=== PATIENT | male | born 1990 | race Caucasian/White ===

== ENCOUNTER 2017-10-21 16:22 | Emergency (ER) | payer BC ==
[2017-10-21 17:34] VITALS: TEMP 98.2
--- NOTE | 2017-10-21 18:01 | ED ---
Male Urogenital HPI - General Chief complaint: Urogenital Stated complaint: Urogenital Time Seen by Provider: 10/21/17 17:29 Source: patient, RN notes reviewed, old records reviewed Mode of arrival: ambulatory Limitations: no limitations - History of Present Illness Initial comments: 27-year-old male presents emergency Department chief complaint of left testicular pain. Patient reports this occurred 6 days ago after having intercourse. He reports he was seen at [facility] and treated for sexually transmitted infections, given Rocephin and multiple oral pills to take. Patient states that he has been having occasional pain to the left testicle since that time. He was concerned that there could be more she's going on so he was seen today. Pain seems worse with certain movements. He denies a significant swelling. Denies any painful urination or penile discharge. - Related Data Allergies Allergy/AdvReac Type Severity Reaction Status Date / Time No Known Allergies Allergy Verified 10/21/17 17:34 Review of Systems ROS Statement: Those systems with pertinent positive or pertinent negative responses have been documented in the HPI. ROS Other: All systems not noted in ROS Statement are negative. Past Medical History Past Medical History: No Reported History History of Any Multi-Drug Resistant Organisms: None Reported Past Surgical History: No Surgical Hx Reported Past Psychological History: Anxiety Smoking Status: Never smoker Past Alcohol Use History: Occasional Past Drug Use History: None Reported General Exam - General Exam Comments Initial Comments: This is a 27-year-old male. Alert and oriented. No significant distress. Limitations: no limitations General appearance: alert, in no apparent distress Head exam: Present: atraumatic, normocephalic, normal inspection Eye exam: Present: normal appearance, PERRL, EOMI. Absent: scleral icterus, conjunctival injection, periorbital swelling ENT exam: Present: normal exam, mucous membranes moist Neck exam: Present: normal inspection. Absent: tenderness, meningismus, lymphadenopathy Respiratory exam: Present: normal lung sounds bilaterally. Absent: respiratory distress, wheezes, rales, rhonchi, stridor Cardiovascular Exam: Present: regular rate, normal rhythm, normal heart sounds. Absent: systolic murmur, diastolic murmur, rubs, gallop, clicks GI/Abdominal exam: Present: soft, normal bowel sounds. Absent: distended, tenderness, guarding, rebound, rigid exam: Present: normal inspection. Absent: testicular tenderness, urethral discharge, scrotal swelling, vertical testicular lie, circumcision Extremities exam: Present: normal inspection, full ROM, normal capillary refill. Absent: tenderness, pedal edema, joint swelling, calf tenderness Back exam: Present: normal inspection Neurological exam: Present: alert, oriented X3, CN II-XII intact Psychiatric exam: Present: normal affect, normal mood Course Vital Signs 10/21/17 17:30 Temperature 98.2 F Pulse Rate 76 Respiratory 18 Rate Blood Pressure 132/76 O2 Sat by Pulse 100 Oximetry Medical Decision Making - Medical Decision Making 27-year-old male onset of left-sided testicular pain after intercourse. Was treated for sexually transmitted infections at this time. Patient has had no urinary symptoms including PE doubt discharge or dysuria. She he reports the pain has been occasional. He has no tenderness to palpation over the scrotum. There is no significant swelling noticed. No abnormal lesions. Ultrasound shows evidence of a left-sided varicocele. Discussed following up with urology. Discussed scrotal support and anti-inflammatory medication. Patient agrees treatment plan will comply. Return parameters were discussed. - Lab Data Lab Results 10/21/17 Range/Units 17:54 Urine Color Yellow Urine Appearance Clear (Clear) Urine pH 6.0 (5.0-8.0) Ur Specific [place] 1.008 (1.001-1.035) Urine Protein Negative (Negative) Urine Glucose (UA) Negative (Negative) Urine Ketones Negative (Negative) Urine Blood Negative (Negative) Urine Nitrite Negative (Negative) Urine Bilirubin Negative (Negative) Urine Urobilinogen <2.0 (<2.0) mg/dL Ur Leukocyte Esterase Negative (Negative) - Radiology Data Radiology results: report reviewed Mild left-sided varicocele. No evidence of testicular torsion or mass. Disposition Clinical Impression: Left varicocele Disposition: HOME SELF-CARE Condition: Good Instructions: Varicocele (ED) Additional Instructions: Patient has a follow-up with urology. Patient should return to emergency department if any alarming signs or symptoms occur. Patient can do scrotal support, as well as take Motrin Tylenol for pain. Is patient prescribed a controlled substance at d/c from ED?: No When asked, does pt state using other controlled substances?: No If prescribed controlled substance>3 days was MAPS reviewed?: No If opioid is for acute pain is fill amount 7 days or less?: No If Rx opioid, was Start Talking consent form obtained?: No Referrals: Joycelyn Ross MD [Primary Care Provider] - 1-2 days Scottie Bassett MD [STAFF PHYSICIAN] - 1-2 days Time of Disposition: 19:03
[2017-10-21 18:13] LABS: Appearance,Urine Clear (Clear); Bilirubin,Urine Negative (Negative); Blood,Urine Negative (Negative); Color,Urine Yellow; Glucose,Urine (UA) Negative (Negative); Ketones,Urine Negative (Negative); Leukocyte Esterase,Urine Negative (Negative); Nitrite,Urine Negative (Negative); Protein,Urine Negative (Negative); Specific Gravity,Urine 1.008 (1.001-1.035); Urobilinogen,Urine <2.0 mg/dL (<2.0)
--- NOTE | 2017-10-21 19:00 | US ---
EXAMINATION TYPE: US scrotum with doppler. Grayscale and color Doppler Duplex imaging performed of t selina scrotum. DATE OF EXAM: 10/21/2017 COMPARISON: NONE CLINICAL HISTORY: Pain. EXAM MEASUREMENTS: TESTICLES: Right Testicle: 5.8 x 2.7 x 3.1 cm Left Testicle: 5.7 x 2.3 x 3.2 cm EPIDIDYMIS HEAD: Right Epididymis: 0.9 cm Left Epididymis: 0.7 cm Doppler performed to assess for testicular vascularity; good bilateral color flow and waveforms are s een. There is no evidence of testicular torsion. Presence of hydroceles: no Presence of varicoceles: There does appear to be a left varicocele. IMPRESSION: Mild left-sided varicocele. No evidence of testicular torsion or mass.
[2017-10-21 19:29] VITALS: BP 142/87; PULSE 75; RESP 16
== END 2017-10-21 19:38 | disposition home or self-care (01) ==
LOC: EC 16:22
DX: I86.1 Scrotal varices (principal); N50.812 Left testicular pain
CPT/HCPCS: 76870; 81003; 87086; 93975; 99284

== ENCOUNTER 2022-08-17 10:43 | Observation (INO) | payer BC ==
[2022-08-17] MEDS ORDERED: SODIUM CHLORIDE 0.9% 1,000 ML IV STA (11:08)
[2022-08-17] MEDS ORDERED: METOCLOPRAMIDE 5 MG/ML 2 ML VIAL IVP STA (11:15)
[2022-08-17] MEDS ORDERED: PANTOPRAZOLE 40 MG/10 ML VIAL IVP STA (11:15)
[2022-08-17 11:33] LABS: Basophils % (A) 0 %; Eosinophils # (A) 0.2 k/uL (0-0.7); Eosinophils % (A) 2 %; HCT 43.6 % (39.0-53.0); HGB 15.8 gm/dL (13.0-17.5); Hyperchromasia Moderate; Lymphocytes % (A) 9 %; MCH 30.4 pg (25.0-35.0); MCHC 36.2 g/dL (31.0-37.0); MCV 84.1 fL (80.0-100.0); Monocytes # (A) 0.6 k/uL (0-1.0); Monocytes % (A) 6 %; Neutrophils # (A) 9.5 k/uL (1.3-7.7); Neutrophils % (A) 82 %; Platelet Count 188 k/uL (150-450); RBC 5.19 m/uL (4.30-5.90); RDW 13.2 % (11.5-15.5); WBC 11.6 k/uL (3.8-10.6)
[2022-08-17 11:59] LABS: ALT 68 U/L (4-49); AST 30 U/L (17-59); African American GFR (CKD) >90 (>60 ml/min/1.73 sqM); Albumin 4.5 g/dL (3.5-5.0); Alkaline Phosphatase 62 U/L (38-126); Anion Gap 13 mmol/L; Blood Urea Nitrogen 12 mg/dL (9-20); Calcium 9.1 mg/dL (8.4-10.2); Carbon Dioxide 23 mmol/L (22-30); Chloride 104 mmol/L (98-107); Glucose 103 mg/dL (74-99); Lipase 52 U/L (23-300); Non-African American GFR(CKD) >90 (>60 ml/min/1.73 sqM); Potassium 4.3 mmol/L (3.5-5.1); Sodium 140 mmol/L (137-145); Total Bilirubin 1.4 mg/dL (0.2-1.3); Total Protein 7.5 g/dL (6.3-8.2)
[2022-08-17] MEDS ORDERED: KETOROLAC 15 MG/ML 1 ML VIAL IVP STA (12:14)
[2022-08-17] MEDS ORDERED: ONDANSETRON 4 MG/2 ML VIAL IVP STA ×2 (12:14→13:13)
--- NOTE | 2022-08-17 12:58 | US ---
EXAMINATION TYPE: US abdomen limited DATE OF EXAM: 08/17/2022 COMPARISON: NONE CLINICAL INDICATION: Male, 32 years old with history of pain; Abdominal pain for 2 days, getting wors e, vomiting TECHNIQUE: Multiple sonographic images of the right upper quadrant are obtained. FINDINGS: EXAM MEASUREMENTS: Liver Length: 17.8 cm Gallbladder Wall: 0.3 cm CBD: 0.5 cm Right Kidney: 11.8 x 4.6 x 4.7 cm INDUSTRIAL ROOFER HELPER NOTES:*Limitations due to patient's body habitus and large amount of overlying bowel cont ent Pancreas: Obscured by bowel gas Liver: heterogeneous. At least one mildly hyperechoic area left lobe = 1.9 x 1.8 x 3.1cm Gallbladder: no evidence of stones as visualized Evidence for sonographic Burton's sign: no CBD: limited evaluation, appears wnl Right Kidney: no evidence of hydronephrosis IMPRESSION: 1. Suspected hemangioma within the liver. Follow-up ultrasound in 3-6 months is recommended to confir m stability. 2. No acute ultrasound abnormality of the abdomen.
[2022-08-17] MEDS ORDERED: diphenhydrAMINE 50 MG/ML 1 ML VIAL IVP STA (13:13)
[2022-08-17] MEDS ORDERED: HYDROmorphone 0.5 MG/0.5 ML SYRINGE IVP STA (13:13)
[2022-08-17 13:42] LABS: Appearance,Urine Turbid (Clear); Bacteria,Urine Rare /hpf; Bilirubin,Urine Negative (Negative); Blood,Urine Negative (Negative); Color,Urine Yellow; Glucose,Urine (UA) Negative (Negative); Ketones,Urine 1+ (Negative); Leukocyte Esterase,Urine Negative (Negative); Mucus,Urine Many /hpf; Nitrite,Urine Negative (Negative); Protein,Urine Trace (Negative); Specific Gravity,Urine 1.033 (1.001-1.035); Urobilinogen,Urine <2.0 mg/dL (<2.0); WBC,Urine 1 /hpf (0-5)
--- NOTE | 2022-08-17 14:26 | CT ---
EXAMINATION TYPE: CT abdomen pelvis w con DATE OF EXAM: 08/17/2022 COMPARISON: None INDICATION: Abdominal pain DLP: 2159.8 mGycm, Automated exposure control for dose reduction was used. CONTRAST: 100 ml mL of Isovue 300. Study performed without Oral Contrast TECHNIQUE: Axial images were obtained from above the diaphragm to the pubic rami in the axial plane a t 5 mm thick sections. Reconstructed images are reviewed on the computer in the coronal plane. FINDINGS: Limited CT sections are obtained the lung bases. The lung bases are clear. CT ABDOMEN: Liver: Mild diffuse fatty infiltration is through the liver. There are hypodensities within the liver most likely on the basis of hepatic cyst. However, there is a 1.8 x 3.7 cm hypodensity which is less distinct on the delayed images. Underlying mass at this level is not excluded. This could be a heman gioma identified by ultrasound. Spleen: Normal Pancreas: Normal Adrenal glands: The adrenal glands are normal. Gallbladder: Normal Kidneys: No masses are evident. No hydronephrosis is present. No cysts are present. Delayed images were obtained through the kidneys, which remain unremarkable. Aorta: Normal Inferior vena cava: Normal. CT PELVIS: Loops of bowel within the abdomen and pelvis are normal. There are loops of bowel which are incom pletely distended or lack oral contrast limiting their evaluation. Appendix: The appendix is dilated at 1.6 cm. Multiple periappendiceal inflammatory changes are presen t. Findings could be compatible with acute appendicitis. Urinary bladder: Normal. Genitourinary structures: Prostate is normal Osseous structures: No suspicious lytic or sclerotic lesions. IMPRESSIONS: 1. Acute appendicitis. No abscess formation or free air is evident. Report was called to the emergen cy room PA by Dr. Altamirano by telephone at the time of interpretation. 2. Suspect a hepatic hemangioma, follow-up ultrasound in 6 months recommended
[2022-08-17] MEDS ORDERED: NALOXONE 0.4 MG/ML 1 ML VIAL IV PRN ×2 (14:30→20:28)
[2022-08-17] MEDS ORDERED: HYDROmorphone 0.5 MG/0.5 ML SYRINGE IVP PRN (14:30)
[2022-08-17] MEDS ORDERED: ONDANSETRON 4 MG/2 ML VIAL IVP PRN ×2 (14:30→20:28)
--- NOTE | 2022-08-17 14:31 | ED ---
Abdominal Pain HPI - General Chief Complaint: Abdominal Pain Stated Complaint: Abd Pain Time Seen by Provider: 08/17/22 10:59 Source: patient, RN notes reviewed Mode of arrival: ambulatory Limitations: no limitations - History of Present Illness Initial Comments: 32-year-old male presents emergency Department from urgent care chief complaint abdominal pain. Patient states he was seen at urgent care was given Bentyl, Pepcid for his pain is in the mid upper abdomen. He states that the pain is worse and he started having nausea vomiting at night. Patient states she just does not feel well. He locates the pain in his mid abdomen symptoms in his rig ht upper quadrant. - Related Data Home Medications Medication Instructions Recorded Confirmed Citalopram Hydrobromide 20 mg PO HS 08/17/22 08/17/22 [Citalopram HBr] Dicyclomine [Bentyl] 20 mg PO TID 08/17/22 08/17/22 Famotidine [Pepcid] 40 mg PO DAILY 08/17/22 08/17/22 Allergies Allergy/AdvReac Type Severity Reaction Status Date / Time No Known Allergies Allergy Verified 08/17/22 12:17 Review of Systems ROS Statement: Those systems with pertinent positive or pertinent negative responses have been documented in the HPI. ROS Other: All systems not noted in ROS Statement are negative. Past Medical History Past Medical History: No Reported History History of Any Multi-Drug Resistant Organisms: None Reported Past Surgical History: No Surgical Hx Reported Past Psychological History: Anxiety Smoking Status: Never smoker Past Alcohol Use History: Occasional Past Drug Use History: None Reported General Exam Limitations: no limitations General appearance: alert, in no apparent distress Head exam: Present: atraumatic, normocephalic, normal inspection Neck exam: Present: normal inspection, full ROM. Absent: tenderness, meningismus, lymphadenopathy Respiratory exam: Present: normal lung sounds bilaterally. Absent: respiratory distress, wheezes, rales, rhonchi, stridor Cardiovascular Exam: Present: regular rate, normal rhythm, normal heart sounds. Absent: systolic murmur, diastolic murmur, rubs, gallop, clicks GI/Abdominal exam: Present: soft, tenderness, normal bowel sounds. Absent: distended, guarding, rebound, rigid Neurological exam: Present: alert Skin exam: Present: warm, dry, intact, normal color. Absent: rash Course Vital Signs 08/17/22 10:53 Temperature 98 F Pulse Rate 83 Respiratory 20 Rate Blood Pressure 122/79 O2 Sat by Pulse 99 Oximetry Medical Decision Making - Medical Decision Making Was pt. sent in by a medical professional or institution ([facility], SMALL ENGINE TRAINER, urgent care, hospital, or residential...) When possible be specific @ -Urgent Care Did you speak to anyone other than the patient for history (EMS, parent, family, police, friend...)? What history was obtained from this source @ -No Did you review nursing and triage notes (agree or disagree)? Why? @ -I reviewed and agree with nursing and triage notes Were old charts reviewed (outside hosp., previous admission, EMS record, old EKG, old radiological studies, urgent care reports/EKG's, residential records)? Report findings @ -No old charts were reviewed Differential Diagnosis (chest pain, altered mental status, abdominal pain women, abdominal pain men, vaginal bleeding, weakness, fever, dyspnea, syncope, headache, dizziness, GI bleed, back pain, seizure, CVA, palpatations, mental health, musculoskeletal)? @ -nDifferential Abdominal Pain Men: Appendicitis, cholecystitis, diverticulosis, ischemic bowel, pancreatitis, hepatitis, UTI, gastroenteritis, AAA, incarcerated hernia, bowel obstruction, constipation, inflammatory bowel, hepatitis, peptic ulcer disease, splenic infarction, perforated viscus, testicular torsion, this is not meant to be an all-inclusive listble EKG interpreted by me (3pts min.). @ -none X-rays interpreted by me (1pt min.). @ -None done CT interpreted by me (1pt min.). @ -CT of the abdomen and pelvis shows evidence of acute appendicitis U/S interpreted by me (1pt. min.). @ -Ultrasound shows a meningioma, no evidence of cholecystitis What testing was considered but not performed or refused? (CT, X-rays, U/S, labs)? Why? @ -None What meds were considered but not given or refused? Why? @ -None Did you discuss the management of the patient with other professionals (professionals i.e. [facility], SMALL ENGINE TRAINER, lab, RT, psych nurse, social worker masters, color consultant, teacher, submarine advisory team watch officer, hospice case manager)? Give summary @ -dr. Rosen for admission of acute appendicitis patient was started on any antibiotics. Was smoking cessation discussed for >3mins.? @ -No Was critical care preformed (if so, how long)? @ -No Were there social determinants of health that impacted care today? How? (Homelessness, low income, unemployed, alcoholism, drug addiction, transportation, low edu. Level, literacy, decrease access to med. care, long-term, rehab)? @ -No Was there de-escalation of care discussed even if they declined (Discuss DNR or withdrawal of care, Hospice)? DNR status @ -No What co-morbidities impacted this encounter? (DM, HTN, Smoking, COPD, CAD, Cancer, CVA, ARF, Chemo, Hep., AIDS, mental health diagnosis, sleep apnea, morbid obesity)? @ -None Was patient admitted / discharged? Hospital course, mention meds given and route, prescriptions, significant lab abnormalities, going to OR and other pertinent info. @ -Admitted to surgery for acute appendicitis patient started on antibiotics. Undiagnosed new problem with uncertain prognosis? @ -No Drug Therapy requiring intensive monitoring for toxicity (Heparin, Nitro, Insulin, Cardizem)? @ -No Were any procedures done? @ -No Diagnosis/symptom? @ -Acute appendicitis Acute, or Chronic, or Acute on Chronic? @ -Acute Uncomplicated (without systemic symptoms) or Complicated (systemic symptoms)? @ -Complicated Side effects of treatment? @ -No Exacerbation, Progression, or Severe Exacerbation? @ -No Poses a threat to life or bodily function? How? (Chest pain, [place], [place], pneumonia, PE, COPD, DKA, ARF, appy, cholecystitis, CVA, Diverticulitis, Homicidal, Suicidal, threat to staff... and all critical care pts) @ -Surgical risk - Lab Data Result diagrams: 08/17/22 11:21 08/17/22 11:21 Lab Results 08/17/22 08/17/22 08/17/22 Range/Units 11:21 11:21 12:49 WBC 11.6 H (3.8-10.6) k/uL RBC 5.19 (4.30-5.90) m/uL Hgb 15.8 (13.0-17.5) gm/dL Hct 43.6 (39.0-53.0) % MCV 84.1 (80.0-100.0) fL MCH 30.4 (25.0-35.0) pg MCHC 36.2 (31.0-37.0) g/dL RDW 13.2 (11.5-15.5) % Plt Count 188 (150-450) k/uL MPV 8.0 Neutrophils % 82 % Lymphocytes % 9 % Monocytes % 6 % Eosinophils % 2 % Basophils % 0 % Neutrophils # 9.5 H (1.3-7.7) k/uL Lymphocytes # 1.0 (1.0-4.8) k/uL Monocytes # 0.6 (0-1.0) k/uL Eosinophils # 0.2 (0-0.7) k/uL Basophils # 0.0 (0-0.2) k/uL Hyperchromasia Moderate Sodium 140 (137-145) mmol/L Potassium 4.3 (3.5-5.1) mmol/L Chloride 104 (98-107) mmol/L Carbon Dioxide 23 (22-30) mmol/L Anion Gap 13 mmol/L BUN 12 (9-20) mg/dL Creatinine 0.74 (0.66-1.25) mg/dL Est GFR (CKD-EPI)AfAm >90 (>60 ml/min/1.73 sqM) Est GFR (CKD-EPI)NonAf >90 (>60 ml/min/1.73 sqM) Glucose 103 H (74-99) mg/dL Calcium 9.1 (8.4-10.2) mg/dL Total Bilirubin 1.4 H (0.2-1.3) mg/dL AST 30 (17-59) U/L ALT 68 H (4-49) U/L Alkaline Phosphatase 62 (38-126) U/L Total Protein 7.5 (6.3-8.2) g/dL Albumin 4.5 (3.5-5.0) g/dL Lipase 52 (23-300) U/L Urine Color Yellow Urine Appearance Turbid (Clear) Urine pH 6.0 (5.0-8.0) Ur Specific [place] 1.033 (1.001-1.035) Urine Protein Trace H (Negative) Urine Glucose (UA) Negative (Negative) Urine Ketones 1+ H (Negative) Urine Blood Negative (Negative) Urine Nitrite Negative (Negative) Urine Bilirubin Negative (Negative) Urine Urobilinogen <2.0 (<2.0) mg/dL Ur Leukocyte Esterase Negative (Negative) Urine WBC 1 (0-5) /hpf Urine Bacteria Rare H (None) /hpf Urine Mucus Many H (None) /hpf Disposition Clinical Impression: Appendicitis Disposition: ADMITTED IP TO THIS HOSP Condition: Fair Referrals: Joycelyn Ross MD [Primary Care Provider] - 1-2 days Time of Disposition: 14:30
[2022-08-17] MEDS: SODIUM CHLORIDE 0.9% 1,000 ML IV SCH (14:56)
[2022-08-17] MEDS: PIPERACILLIN-TAZOBACTAM 3.375 GM in SODIUM CHLORIDE 0.9% 100 ML IVPB SCH ×2 (18:45→23:07)
[2022-08-17] MEDS: ACETAMINOPHEN IV (For NPO) 1,000 MG in EMPTY BAG 1 BAG IVPB SCH ×2 (18:47→22:56)
[2022-08-17] MEDS ORDERED: ROCURONIUM 10 MG/ML (5 ML VIAL) IV ONE (19:31)
[2022-08-17] MEDS ORDERED: KETOROLAC 15 MG/ML 1 ML VIAL ONE (19:31)
[2022-08-17] MEDS ORDERED: HYDROmorphone (PF) 1 MG/ML ONE (19:31)
[2022-08-17] MEDS ORDERED: fentaNYL (PF) 50 MCG/ML 2 ML AMP ONE (19:31)
[2022-08-17] MEDS ORDERED: PROPOFOL 10 MG/ML 20 ML VIAL IV ONE (19:31)
[2022-08-17] MEDS ORDERED: SUCCINYLCHOLINE CHLORIDE 200 MG/10 ML VIAL IV ONE (19:31)
[2022-08-17] MEDS ORDERED: MIDAZOLAM 2 MG/2 ML VIAL ONE (19:31)
[2022-08-17] MEDS ORDERED: NEOSTIGMINE 1 MG/ML 10 ML VIAL ONE (19:31)
[2022-08-17] MEDS ORDERED: GLYCOPYRROLATE 0.2 MG/ML 2 ML VIAL ONE (19:31)
[2022-08-17] MEDS ORDERED: LIDOCAINE 2% INJ 20 MG/ML (2 ML VIAL) ONE (19:31)
[2022-08-17] MEDS ORDERED: LIDOCAINE 4% LTA KIT (4 ML) TOPICAL ONE (19:31)
--- NOTE | 2022-08-17 19:32 | P.GSHP ---
History of Present Illness H&P Date: 08/17/22 Chief Complaint: Right lower quadrant pain This a 32-year-old male who has a three-day history of right lower quadrant pain. Patient's emergency room found have acute appendicitis. Past Medical History Past Medical History: No Reported History History of Any Multi-Drug Resistant Organisms: None Reported Past Surgical History: No Surgical Hx Reported Past Psychological History: Anxiety Smoking Status: Never smoker Past Alcohol Use History: Occasional Past Drug Use History: None Reported Medications and Allergies Home Medications Medication Instructions Recorded Confirmed Type Citalopram Hydrobromide 20 mg PO HS 08/17/22 08/17/22 History [Citalopram HBr] Dicyclomine [Bentyl] 20 mg PO TID 08/17/22 08/17/22 History Famotidine [Pepcid] 40 mg PO DAILY 08/17/22 08/17/22 History Allergies Allergy/AdvReac Type Severity Reaction Status Date / Time No Known Allergies Allergy Verified 08/17/22 12:17 Surgical - Exam Vital Signs Temp Pulse Resp BP Pulse Ox 98 F 83 20 122/79 99 08/17/22 10:53 08/17/22 10:53 08/17/22 10:53 08/17/22 10:53 08/17/22 10:53 - General well developed, well nourished, no distress - Eyes PERRL - ENT normal pinna - Neck no masses - Respiratory normal expansion - Cardiovascular Rhythm: regular - Abdomen Right lower quadrant tenderness Abdomen: soft, tender Results - Labs 08/17/22 11:21 08/17/22 11:21 Abnormal Lab Results - Last 24 Hours (Table) 08/17/22 08/17/22 08/17/22 Range/Units 11:21 11:21 12:49 WBC 11.6 H (3.8-10.6) k/uL Neutrophils # 9.5 H (1.3-7.7) k/uL Glucose 103 H (74-99) mg/dL Total Bilirubin 1.4 H (0.2-1.3) mg/dL ALT 68 H (4-49) U/L Urine Protein Trace H (Negative) Urine Ketones 1+ H (Negative) Urine Bacteria Rare H (None) /hpf Urine Mucus Many H (None) /hpf Diabetes panel 08/17/22 Range/Units 11:21 Sodium 140 (137-145) mmol/L Potassium 4.3 (3.5-5.1) mmol/L Chloride 104 (98-107) mmol/L Carbon Dioxide 23 (22-30) mmol/L BUN 12 (9-20) mg/dL Creatinine 0.74 (0.66-1.25) mg/dL Glucose 103 H (74-99) mg/dL Calcium 9.1 (8.4-10.2) mg/dL AST 30 (17-59) U/L ALT 68 H (4-49) U/L Alkaline Phosphatase 62 (38-126) U/L Total Protein 7.5 (6.3-8.2) g/dL Albumin 4.5 (3.5-5.0) g/dL Calcium panel 08/17/22 Range/Units 11:21 Calcium 9.1 (8.4-10.2) mg/dL Albumin 4.5 (3.5-5.0) g/dL Pituitary panel 08/17/22 Range/Units 11:21 Sodium 140 (137-145) mmol/L Potassium 4.3 (3.5-5.1) mmol/L Chloride 104 (98-107) mmol/L Carbon Dioxide 23 (22-30) mmol/L BUN 12 (9-20) mg/dL Creatinine 0.74 (0.66-1.25) mg/dL Glucose 103 H (74-99) mg/dL Calcium 9.1 (8.4-10.2) mg/dL Adrenal panel 08/17/22 Range/Units 11:21 Sodium 140 (137-145) mmol/L Potassium 4.3 (3.5-5.1) mmol/L Chloride 104 (98-107) mmol/L Carbon Dioxide 23 (22-30) mmol/L BUN 12 (9-20) mg/dL Creatinine 0.74 (0.66-1.25) mg/dL Glucose 103 H (74-99) mg/dL Calcium 9.1 (8.4-10.2) mg/dL Total Bilirubin 1.4 H (0.2-1.3) mg/dL AST 30 (17-59) U/L ALT 68 H (4-49) U/L Alkaline Phosphatase 62 (38-126) U/L Total Protein 7.5 (6.3-8.2) g/dL Albumin 4.5 (3.5-5.0) g/dL - Imaging CT scan - pelvis: report reviewed (Acute appendicitis) Assessment and Plan Assessment: Right lower quadrant pain Appendicitis We'll perform laparoscopic appendectomy
[2022-08-17] MEDS ORDERED: BUPIVACAINE (PF) 0.25% 30 ML VIAL SQ ONE (19:34)
[2022-08-17] MEDS ORDERED: SODIUM CHLORIDE 0.9% 1,000 ML IV ONE (19:59)
--- NOTE | 2022-08-17 20:26 | P.OP ---
Date of Procedure: 08/17/22 Preoperative Diagnosis: Acute appendicitis Postoperative Diagnosis: Acute appendicitis Procedure(s) Performed: Laparoscopic appendectomy Anesthesia: ROSA Surgeon: August Rosen Estimated Blood Loss (ml): 10 Pathology: other (Appendix) Condition: stable Disposition: PACU Operative Findings: Acute appendicitis Description of Procedure: The patient's placed on the operating table in the supine position. The patient received general anesthesia. The abdomen was prepped and draped in the usual sterile fashion. The skin was anesthetized 1% local Xylocaine at the trocar sites. Using an 11 blade the skin was incised at the umbilicus. The umbilicus was grasped with a Jazmín clamp and then a Veress needle was placed into the peritoneal cavity. Position of the Veress needle was confirmed with positive drop test. After adequate insufflation a 5 mm trocar was placed into the peritoneal cavity. The abdomen was further insufflated. And then the laparoscope was placed in the peritoneal cavity. Next a 5 mm trocar was placed in the midline suprapubic position. And then a 10 mm trocar was placed in the midline epigastric position. The patient was rotated with the right side up and in Trendelenburg. The appendix was visualized. The appendix appeared to be inflamed. The appendix was grasped and then using the Harmonic scissors the mesoappendix was divided. A PDS Endoloop was then placed around the base of the appendix. And then the appendix was divided using Harmonic scissors. The appendix was placed into an Endo Catch and brought out through the 10 mm trocar site. The abdomen was irrigated. There is no bleeding seen. The trochars withdrawn. The skin was closed interrupted 3-0 Monocryl suture. Dermabond dressing was applied. Patient was sent to recovery room in stable condition.
[2022-08-17] MEDS ORDERED: ACETAMINOPHEN TAB 325 MG TAB PO PRN (20:28)
[2022-08-17] MEDS ORDERED: LACTATED RINGERS 1,000 ML IV ONE (20:28)
[2022-08-17] MEDS ORDERED: traMADol 50 MG TAB PO PRN (20:28)
[2022-08-17] MEDS ORDERED: HYDROcodone/APAP 5-325MG 1 EACH TAB PO PRN (20:28)
[2022-08-17] MEDS ORDERED: HYDROmorphone 1 MG/ML 1 ML SYRINGE IVP PRN (20:28)
[2022-08-17] MEDS: KETOROLAC 15 MG/ML 1 ML VIAL IVP SCH (23:08)
[2022-08-18] MEDS: SODIUM CHLORIDE 0.9% 1,000 ML IV SCH (04:31)
[2022-08-18] MEDS: KETOROLAC 15 MG/ML 1 ML VIAL IVP SCH ×2 (05:19→12:04)
[2022-08-18] MEDS: ACETAMINOPHEN IV (For NPO) 1,000 MG in EMPTY BAG 1 BAG IVPB SCH ×2 (05:19→13:01)
[2022-08-18 08:23] VITALS: BP 107/64; PULSE 99; RESP 18; TEMP 98.9
[2022-08-18] MEDS: PIPERACILLIN-TAZOBACTAM 3.375 GM in SODIUM CHLORIDE 0.9% 100 ML IVPB SCH (08:33)
[2022-08-18] MEDS ORDERED: ENOXAPARIN 40 MG/0.4 ML SYRINGE SQ SCH (09:00)
--- NOTE | 2022-08-18 11:44 | P.CONS ---
History of Present Illness - Reason for Consult Consult date: 08/18/22 Medical management Requesting physician: August Rosen - Chief Complaint Acute appendicitis - History of Present Illness This is a 32-year-old male patient of Dr. Ross who presented to the ER with concerns of 3 days of right lower quadrant pain. CT of the abdomen was completed showing acute appendicitis with no abscess formation or free air. Also suspect a hepatic hemangioma follow up ultrasound in 6 months recommended. Patient does not have any significant medical history except anxiety. Temp 98.9, heart rate 99, pulse ox 95% on room air blood pressure 107/64. Patient reports improvement with abdominal discomfort has been passing gas has been tolerating diet. Patient denies chest pain or shortness of breath. Patient denies nausea vomiting or diarrhea. Patient denies any urinary burning or frequency Review of Systems Please refer to HPI otherwise unremarkable Past Medical History Past Medical History: No Reported History History of Any Multi-Drug Resistant Organisms: None Reported Past Surgical History: No Surgical Hx Reported Past Psychological History: Anxiety Smoking Status: Never smoker Past Alcohol Use History: Occasional Past Drug Use History: None Reported Medications and Allergies Home Medications Medication Instructions Recorded Confirmed Type Citalopram Hydrobromide 20 mg PO HS 08/17/22 08/17/22 History [Citalopram HBr] Dicyclomine [Bentyl] 20 mg PO TID 08/17/22 08/17/22 History Famotidine [Pepcid] 40 mg PO DAILY 08/17/22 08/17/22 History Allergies Allergy/AdvReac Type Severity Reaction Status Date / Time No Known Allergies Allergy Verified 08/17/22 12:17 Physical Exam Vitals: Vital Signs Temp Pulse Pulse Pulse Resp BP BP 08/18/22 08:38 18 08/18/22 07:14 98.9 F 99 18 08/18/22 03:04 98.6 F 98 16 08/17/22 21:49 98.4 F 100 16 08/17/22 21:20 97 16 124/64 08/17/22 20:55 90 16 130/67 08/17/22 20:39 82 16 111/62 08/17/22 20:24 97.5 F L 82 16 101/57 08/17/22 15:56 98.6 F 76 16 126/71 08/17/22 14:40 98.2 F 82 14 125/77 BP Pulse Ox 08/18/22 08:38 08/18/22 07:14 107/64 93 L 08/18/22 03:04 116/74 93 L 08/17/22 21:49 136/81 94 L 08/17/22 21:20 95 08/17/22 20:55 97 08/17/22 20:39 96 08/17/22 20:24 95 08/17/22 15:56 99 08/17/22 14:40 99 Intake and Output 08/17/22 08/18/22 08/18/22 22:59 06:59 14:59 Intake Total 500 118 Output Total 20 Balance 480 118 Intake: IV 400 Oral 100 118 Output: Estimated Blood Loss 20 Other: Voiding Method Toilet # Voids 1 Weight 124.738 kg Head normocephalic Neck supple Lungs clear to auscultation bilaterally no wheezing or crackles Heart regular rate and rhythm S1-S2, no rub or gallop Abdomen is soft nontender nondistended positive bowel sounds no hepatosplenomegaly Extremities no edema Neuro alert and orientated to 3 Results CBC & Chem 7: 08/17/22 11:21 08/17/22 11:21 Labs: Abnormal Lab Results - Last 24 Hours (Table) 08/17/22 08/17/22 08/17/22 Range/Units 11:21 11:21 12:49 WBC 11.6 H (3.8-10.6) k/uL Neutrophils # 9.5 H (1.3-7.7) k/uL Glucose 103 H (74-99) mg/dL Total Bilirubin 1.4 H (0.2-1.3) mg/dL ALT 68 H (4-49) U/L Urine Protein Trace H (Negative) Urine Ketones 1+ H (Negative) Urine Bacteria Rare H (None) /hpf Urine Mucus Many H (None) /hpf Assessment and Plan Assessment: 1. Acute appendicitis status post laparoscopic appendectomy 2. History of anxiety 3. Incidental finding of hepatic hemangioma on CT of abdomen recommend follow- up ultrasound in 6 months Thank you for this consultation we will continue to follow patient closely thro ughout stay
--- NOTE | 2022-08-18 11:51 | P.DS ---
Providers Date of admission: 08/17/22 14:33 Expected date of discharge: 08/18/22 Attending physician: August Rosen Consults: 08/17/22 20:28 Consult Physician Routine Consulting Provider: Marycarmen Almanza Consult Reason/Comments: Medical management Do you want consulting provider notified?: Yes Primary care physician: Joycelyn Ross Hospital Course: Discharge diagnosis 1. Acute appendicitis status post laparoscopic appendectomy Hospital course This is a 32-year-old male who presented with 3 day history of right lower quadrant abdominal pain. He is found have evidence of acute appendicitis. He is status post laparoscopic appendectomy. He tolerated surgery well. His pain is controlled. He is tolerating diet. He's having flatus. He is afebrile. He has been up and ambulating. He is stable for discharge. Please refer to chart for any further details. Physician Coil Strapper note has been reviewed by physician. Signing provider agrees with the documented findings, assessment, and plan of care. Patient Condition at Discharge: Stable Plan - Discharge Summary Discharge Rx Participant: No New Discharge Prescriptions: New Ibuprofen [Motrin] 600 mg PO Q8HR PRN #30 tab PRN Reason: Pain oxyCODONE HCL [OxyIR] 5 mg PO Q6H PRN 3 Days #12 tab PRN Reason: Pain Acetaminophen Tab [Tylenol Tab] 650 mg PO Q4H PRN #30 tablet PRN Reason: Pain Continue Dicyclomine [Bentyl] 20 mg PO TID Citalopram Hydrobromide [Citalopram HBr] 20 mg PO HS Famotidine [Pepcid] 40 mg PO DAILY Discharge Medication List Citalopram Hydrobromide [Citalopram HBr] 20 mg PO HS 08/17/22 [History] Dicyclomine [Bentyl] 20 mg PO TID 08/17/22 [History] Famotidine [Pepcid] 40 mg PO DAILY 08/17/22 [History] Acetaminophen Tab [Tylenol Tab] 650 mg PO Q4H PRN #30 tablet 08/18/22 [Rx] Ibuprofen [Motrin] 600 mg PO Q8HR PRN #30 tab 08/18/22 [Rx] oxyCODONE HCL [OxyIR] 5 mg PO Q6H PRN 3 Days #12 tab 08/18/22 [Rx] Follow up Appointment(s)/Referral(s): Joycelyn Ross MD [Primary Care Provider] - 1-2 days August Rosen MD [STAFF PHYSICIAN] - 1 Week Activity/Diet/Wound Care/Special Instructions: No driving while taking OxyIR No lifting over 10 pounds Shower daily. No soaking or tub baths for 2 weeks Very light activity until you are reevaluated at your follow up appointment with your surgeon Discharge Disposition: HOME SELF-CARE
== END 2022-08-18 13:56 | disposition home or self-care (01) ==
LOC: EC 10:43 → 6NMEDSUR 14:33
PROVIDERS: ADMIT Surgery; ATTEND Surgery
DX: K35.80 Unspecified acute appendicitis (principal); F41.9 Anxiety disorder, unspecified; Z79.899 Other long term (current) drug therapy
CPT/HCPCS: 96376; 96361; 96365; 96375; 99285; 36415; 88304; 80053; 83690; 85025; 81001; 87040; 76705; 74177; 44970; G0378 ×2; J2543 ×2; J2250; J0330; J1200; J2710; J2765; J2405; J3010; J1170 ×2; J0131; J1885 ×2; J2704; C9113; Q9967; J2001